=== PATIENT | female | born 1995 | race Caucasian/White ===

== ENCOUNTER 2021-09-13 18:06 | Emergency (ER) | payer OTHER ==
[~2021-09-13] VITALS: Ht 170.2 cm; Wt 95.2 kg
[~2021-09-13 18:06] MED LIST: CETIRIZINE HCL10 MG PO
--- OUTSIDE RECORDS SUMMARY | 2021-09-13 18:14 | XMS ---
PreManage Notification: JUSTIN BORGES [employer] Integration Advisor Events No recent Security Events currently on file CRITERIA MET - [facility] - 2 Visits in 30 Days CARE PROVIDERS There are no care providers on record at this time. Zana has no Care Guidelines for this patient. Ambrosio VISIT COUNT (12 MO.) 2 [facility] TOTAL 2 NOTE: Visits indicate total known visits. ED/C VISIT TRACKING (12 MO.) 09[facility]13[facility]2021 18[facility]06 [facility] COMPLAINT: - COLD SYMPTOMS 09/13/2021 17:31 [facility] OR TYPE: Emergency COMPLAINT: - COLD SYMPTOMS INPATIENT VISIT TRACKING (12 MO.) No inpatient visits to display in this time frame [email or web address]
[2021-09-13] MEDS ORDERED: FLUOXETINE HCL10 MG PO (18:30)
[2021-09-13] MEDS ORDERED: ONDANSETRON ODT8 MG PO (20:32)
[2021-09-13] MEDS ORDERED: CYCLOBENZAPRINE10 MG PO (20:32)
== END 2021-09-13 20:55 | disposition home or self-care (01) ==
LOC: ED 18:06
DX: B34.9 Viral infection, unspecified (principal); Z79.899 Other long term (current) drug therapy
CPT/HCPCS: 80048; 81001; 85025; 96374; 99284-25; A9270; J2405; J7030

== ENCOUNTER 2022-04-16 19:17 | Emergency (ER) | payer OTHER ==
[~2022-04-16] VITALS: Ht 170.2 cm; Wt 97.0 kg
[~2022-04-16 19:17] MED LIST changes: +CYCLOBENZAPRINE10 MG PO; +FLUOXETINE HCL10 MG PO; +ONDANSETRON ODT8 MG PO
== END 2022-04-17 09:34 ==
LOC: ED 19:17
DX: R45.851 Suicidal ideations (principal); Z91.040 Latex allergy status; Z20.822 Contact with and (suspected) exposure to COVID-19
CPT/HCPCS: 36415; 80053; 81001; 84443; 84703; 85025; 87502; G0480; U0003

== ENCOUNTER 2023-05-13 18:08 | Emergency (ER) | payer OTHER ==
[~2023-05-13] VITALS: Ht 170.2 cm; Wt 90.3 kg
[2023-05-13 20:35] LABS: INFLUENZA B NAA NEGATIVE (NEGATIVE); RESPIRATORY SYNCYTIAL VIR NAA NEGATIVE (NEGATIVE)
[2023-05-13] MEDS ORDERED: BENZONATATE100 MG PO (20:59)
[2023-05-13] MEDS ORDERED: CYCLOBENZAPRINE10 MG PO (20:59)
[2023-05-13] MEDS ORDERED: ONDANSETRON ODT8 MG PO (20:59)
[2023-05-13 21:16] VITALS: BP 110/68
[2023-05-13] MEDS ORDERED: ESCITALOPRAM OX20 MG PO (21:16)
[2023-05-13] MEDS ORDERED: TRAZODONE HCL50 MG (21:17)
[2023-05-13] MEDS ORDERED: QUETIAPINE FUMA25 MG PO (21:17)
== END 2023-05-13 21:18 | disposition home or self-care (01) ==
LOC: ED 18:08
PROVIDERS: Family Medicine
DX: B34.9 Viral infection, unspecified (principal); Z91.040 Latex allergy status; Z20.822 Contact with and (suspected) exposure to COVID-19
CPT/HCPCS: 87502; A9270; J1885; U0002

== ENCOUNTER 2025-04-19 14:48 | Emergency (ER) | payer OTHER ==
[~2025-04-19] VITALS: Ht 170.2 cm; Wt 107.9 kg
[~2025-04-19 14:48] MED LIST changes: +BENZONATATE100 MG PO; +ESCITALOPRAM OX20 MG PO; +QUETIAPINE FUMA25 MG PO; +TRAZODONE HCL50 MG
[2025-04-19] MEDS ORDERED: IBUPROFEN 800 MG TAB PO ONE (23:30)
[2025-04-19] MEDS ORDERED: IBU800 MG PO (23:32)
[2025-04-19 23:58] VITALS: BP 112/85
== END 2025-04-19 23:59 | disposition home or self-care (01) ==
LOC: ED 14:48
DX: S63.602A Unspecified sprain of left thumb, initial encounter (principal); X50.0XXA Overexertion from strenuous movement or load, initial encounter; Z91.040 Latex allergy status
CPT/HCPCS: 73140; 99283